=== PATIENT | female | born 2000 | race Caucasian/White ===

== ENCOUNTER 2024-07-03 08:11 | Emergency (ER) | payer MEDICAID, OTHER ==
[~2024-07-03] VITALS: Ht 160 cm; Wt 60.0 kg
[2024-07-03 08:20] VITALS: BP 120/84; PULSE 92; RESP 18; TEMP 36.7; O2SAT 100
[2024-07-03 08:41] VITALS: TEMP 98.1
[2024-07-03] MEDS: ACETAMINOPHEN 325MG TABLET PO ONE (08:41)
[2024-07-03] MEDS ORDERED: TOPUD PO (10:19)
== END 2024-07-03 10:57 | disposition home or self-care (01) ==
LOC: ER 08:11
DX: S00.93XA Contusion of unspecified part of head, initial encounter (principal); X58.XXXA Exposure to other specified factors, initial encounter; Y93.89 Activity, other specified; Y92.89 Other specified places as the place of occurrence of the external cause; Y99.8 Other external cause status
CPT/HCPCS: 70486; 81025; 99284